=== PATIENT | male | born 1995 | race Two or more races ===

== ENCOUNTER 2017-12-19 18:16 | Emergency (ER) | payer MEDICAID ==
[~2017-12-19] VITALS: Ht 167.6 cm; Wt 75.3 kg
[~2017-12-19 18:16] MED LIST: NAPROSYN375 M1 ORAL; NKM
[2017-12-19] MEDS ORDERED: Methocarbamol 500mg tab ORAL ONE (19:00)
[2017-12-19 19:01] VITALS: BP 115/79
[2017-12-19] MEDS ORDERED: LIDOCAINE700 M1 TP (19:03)
[2017-12-19] MEDS ORDERED: IBUPROFEN600 MG ORAL (19:03)
[2017-12-19] MEDS ORDERED: ROBAXIN500 MG PO (19:03)
--- NOTE | 2017-12-19 19:04 | Emergency Room Report ---
History of Present Illness General Chief Complaint: Back Pain-No Injury Source: Patient Present Illness HPI 22-year-old male patient presents ER complaining of low back pain 1 month. Reports back pain began when he got up morning and began moving around. Reports pain does not radiate down his legs. Denies bowel or bladder incontinence. Denies other acute symptoms. Reports right-sided low back pain, states feels like muscle spasm. Reports able to ambulate. Denies acute injury or trauma. denies fever, chest pain, shortness of breath, abdominal pain.denies dysuria, hematuria. Allergies: Coded Allergies: No Known Allergies (Unverified , 07/20/13) Patient History Past Medical History: see triage record Reviewed Nursing Documentation: PMH: Agreed; PSxH: Agreed Nursing Documentation-PMH Past Medical History: No Stated History Review of Systems All Other Systems: negative except mentioned in HPI Physical Exam Vital Signs Date Time Temp Pulse Resp B/P (MAP) Pulse Ox O2 Delivery O2 Flow Rate FiO2 12/19/17 18:30 98.2 76 18 112/72 97 Room Air 98.2 Sp02 EP Interpretation: reviewed, normal General Appearance: well appearing, no apparent distress, alert, GCS 15, non- toxic Head: normocephalic, atraumatic Eyes: bilateral eye normal inspection, bilateral eye PERRL ENT: hearing grossly normal, normal pharynx, no angioedema, normal voice, uvula midline, moist mucus membranes Neck: full range of motion Respiratory: lungs clear, normal breath sounds, no rhonchi, no respiratory distress, no accessory muscle use, no wheezing, speaking full sentences Musculoskeletal: back normal, digits/nails normal, gait/station normal, normal range of motion, other - no spinous process tenderness, no bony depression, tender - right sided lumbosacral region Neurologic: alert, oriented x3, responsive, motor strength/tone normal, SLR negative, sensory intact, cerebellar normal, normal gait, speech normal Psychiatric: mood/affect normal Medical Decision Making PA Attestation Dr. Aldana is my supervising Physician whom patient management has been discussed with. Diagnostic Impression: Primary Impression: Back pain ER Course Pt. presents to the ED right-sided low back pain. Ddx considered but are not limited to fracture, sprain, strain, contusion. No evidence of incontinence, low suspicion for cauda equina syndrome. Vital signs: are WNL, pt. is afebrile Ordered imaging and pain medication. ER COURSE Provided with pain medication. no focal neuro deficits, straight leg raise negative, no acute injury or trauma , does not require imaging at this time. Likely muscle spasm. follow-up with primary care provider to discuss further treatment referral. Patient instructed on RICE method: rest, ice, compression, elevation. Patient instructed on rest, ice and heat for pain symptoms. Followup with primary care provider for medical clearance to return to activities. Discuss referral to ortho/pain management/PT as needed. Discuss further imaging with MRI/CT as needed. patient observed ambulating in ER without difficulty, patient discharged home. Patient did not try to ER, will be driven home by mother. DISCHARGE: -Rx provided for Ibuprofen for pain symptoms. -Rx provided for Methocarbamol. SE drowsiness, do not drink, drive, or operate heavy machinery while using. -Rx provided for lidocaine patches At this time pt. is stable for d/c to home. Patient resting comfortably, in no acute distress, nontoxic appearing. Will provide printed patient care instructions, and any necessary prescriptions. Patient advised on side effects of medications. Patient instructed to follow with primary care provider in 2-3 days and to request further orthopedic follow-up. Care plan and follow up instructions have been discussed with the patient prior to discharge. Patient instructed to rest and ice Take medications as directed. Patient questions asked and answered. ER precautions given, patient instructed to return to ER immediately for any new or worsening of symptoms including but not limited to chest pain, SOB, vision loss, abdominal pain, intractable vomiting. - Please note that this Emergency Department Report was dictated using Pleimotor operator technology software, occasionally this can lead to erroneous entry secondary to interpretation by the dictation equipment. Last Vital Signs Date Time Temp Pulse Resp B/P (MAP) Pulse Ox O2 Delivery O2 Flow Rate FiO2 12/19/17 18:30 98.2 76 18 112/72 97 Room Air 98.2 Disposition: HOME, SELF-CARE Condition: Stable Scripts Methocarbamol* (ROBAXIN*) 500 Mg Tablet 500 MG PO TID, #21 TAB 0 Refills Prov: Raheem Laughlin P.A. 12/19/17 Ibuprofen* (MOTRIN*) 600 Mg Tablet 600 MG ORAL Q8H PRN for For Pain, #30 TAB 0 Refills Prov: Raheem Laughlin 12/19/17 Lidocaine (Lidocaine) 1 Each Adh..patch 700 MG TP DAILY for 6 Days, #6 PATCH Prov: Raheem Laughlin 12/19/17 Referrals: [facility],REFERR[facility] (PCP) Patient Instructions: Back Exercises, [id number], Back Pain, Adult, Muscle Cramps and Spasms, [id number] Additional Instructions: Patient instructed to follow up with primary care provider 3-5 and discuss further referral and imaging at that time.discuss referral to physical therapy and pain management as needed. Discuss referral to orthopedist as needed. Patient instructed on rest, ice and heat. Do not take muscle relaxant prior to drinking, driving, or operating heavy machinery. Take medications as directed. Patient questions asked and answered. ER precautions given, patient instructed to return to ER immediately for any new or worsening of symptoms. Raheem Laughlin Dec 19, 2017 19:04
[2017-12-19 19:14] VITALS: BP 115/79
== END 2017-12-19 19:14 | disposition home or self-care (01) ==
LOC: EMR 18:49
DX: M54.5 Low back pain (principal)
CPT/HCPCS: 99284